=== PATIENT | male | born 1980 ===

== ENCOUNTER 2017-11-16 10:36 | Emergency (ER) | payer OTHER ==
[2017-11-16 10:45] VITALS: O2SAT 98
[2017-11-16] MEDS ORDERED: Sodium Chloride 0.9% 1,000 ML IV STA (11:32)
--- NOTE | 2017-11-16 11:35 | C.PDOC ---
History Of Present Illness Amilcar Majano is a 37 year old male, with no past medical history, who presents to the emergency department complaining of fever and epigastric abdominal pain onset for x3 days. Patient reports on Saturday he went to [facility] for evaluation of fever, he was swabbed for the Flu which came back negative, and was prescribed medication but with no resolution of fever. Patient went to [facility] again today, he had a Fever of 100.5 and had an X-Ray done. Patient states he was told he had some blood in urine and was referred to come to the ER for complete evaluation. Patient also reports some backaches but denies any other medical complaints. PMD: None provided. Time Seen by Provider: 11/16/17 11:08 Chief Complaint (Nursing): Abdominal Pain History Per: Patient History/Exam Limitations: no limitations Onset/Duration Of Symptoms: Days (x3) Current Symptoms Are (Timing): Still Present Location Of Pain/Discomfort: Epigastric Radiation Of Pain To:: None Quality Of Discomfort: "Pain" Associated Symptoms: Fever, Back Pain (back stiffness), Urinary Symptoms (mild blood in urine) Past Medical History Reviewed: Historical Data, Nursing Documentation, Vital Signs Vital Signs: Last Vital Signs Temp 99.3 F 11/16/17 13:46 Pulse 90 11/16/17 13:46 Resp 18 11/16/17 13:46 BP 148/83 11/16/17 13:46 Pulse Ox 98 11/16/17 13:46 - Medical History PMH: No Chronic Diseases Surgical History: Tonsillectomy Family History: States: Unknown Family Hx - Social History Hx Tobacco Use: No Hx Alcohol Use: No Hx Substance Use: No Review Of Systems Except As Marked, All Systems Reviewed And Found Negative. Constitutional: Positive for: Fever Gastrointestinal: Positive for: Abdominal Pain (epigastric) Genitourinary: Positive for: Hematuria (mild) Musculoskeletal: Positive for: Back Pain (back stiffness) Physical Exam - Physical Exam Appears: Well, Non-toxic, No Acute Distress Skin: Normal Color, Warm, Dry Head: Atraumatic, Normacephalic Eye(s): bilateral: Normal Inspection Ear(s): Bilateral: Normal Nose: Normal Throat: No Erythema, No Exudate Neck: Normal ROM, Supple Cardiovascular: Rhythm Regular, No Murmur Respiratory: Normal Breath Sounds (clear b/l), No Wheezing Gastrointestinal/Abdominal: Normal Exam, Soft, No Tenderness Back: Normal Inspection, No CVA Tenderness, No Vertebral Tenderness, No Paraspinal Tenderness Extremity: Normal ROM, No Deformity, No Swelling Neurological/Psych: Oriented x3, Normal Speech, Normal Cognition ED Course And Treatment - Laboratory Results Result Diagrams: 11/16/17 11:34 11/16/17 11:34 O2 Sat by Pulse Oximetry: 98 (RA) Pulse Ox Interpretation: Normal Progress Note: Initial Plan: --CK-MB. --Comp Metabolic Panel. --Creatine Phosphokinase. --Lipase. --Troponin I. --CBC w/ differential. --PTT. --PT. --Chest two views (PA/LAT) [RAD]. --Sodium Chloride 1,000 ml IV 1,000 mls/ hr. --Influenza A B positive. --Urinalysis. Patient feels better, not toxic, no hematuria, abdomen is not tender. No meningeal signs. Positive test for influenza A. However patient is symptomatic for 6 days, Tamiflu is not indicated any longer. Patient was found to be hyperglycemic. Patient sts he doesn't have P{MD and didn't have regular check up for a while. Patient admits having a strong family h/o DM. Metformin was started. Patient was instructed to f.u with PMD [facility] and to return to ED if feel worse. Disposition - Disposition Referrals: Agustin Smith MD [Staff Provider] - Disposition: HOME/ ROUTINE Disposition Time: 13:26 Condition: STABLE Additional Instructions: Follow up with PMD within 1-2 days. Return to ED if feel worse. Prescriptions: Metformin ER [Glucophage XR] 750 mg PO DAILY #30 ter Ibuprofen [Motrin Tab] 600 mg PO Q8 #30 tab Ondansetron ODT [Zofran ODT] 4 mg PO .Q4-6H PRN #20 odt PRN Reason: Nausea/Vomiting Instructions: Metformin (By mouth), Diabetes Mellitus Type 2 in Adults (ED), Influenza (ED) Forms: [employer] (Turkmen) - Clinical Impression Clinical Impression: Influenza A, Diabetes mellitus - Scribe Statement Jimi Christine All medical record entries made by the Scribe were at my direction and personally dictated by me. I have reviewed the chart and agree that the record accurately reflects my personal performance of the history, physical exam, medical decision making, and the department course for this patient. I have also personally directed, reviewed, and agree with the discharge instructions and disposition.
[2017-11-16 11:47] LABS: BASO # 0.1 K/uL (0.0-0.2); BASO % 1.5 % (0.0-2.0); EOS % 0.2 % (0.0-4.0); HEMOGLOBIN 15.8 g/dL (12.0-18.0); LYMPH # 0.7 K/uL (1.0-4.3); LYMPH % 16.6 % (20.0-40.0); MEAN CELL VOLUME 83.5 fL (80.0-94.0); MEAN CORPUSCULAR HEMOGLOBIN 28.7 pg (27.0-31.0); MEAN CORPUSCULAR HGB CONC 34.4 g/dL (33.0-37.0); MEAN PLATELET VOLUME 11.7 fL (7.2-11.7); MONO # 0.4 K/uL (0.0-0.8); MONO % 10.6 % (0.0-10.0); NEUT # 2.9 K/uL (1.8-7.0); NEUT % 71.1 % (50.0-75.0); NRBC % 0.3 % (0.0-2.0); RBC 5.5 Mil/uL (4.40-5.90); RED CELL DISTRIBUTION WIDTH 14.9 % (11.5-14.5); URINE BILIRUBIN NEGATIVE (NEGATIVE); URINE BLOOD NEGATIVE (NEGATIVE); URINE CLARITY Clear (Clear); URINE COLOR Yellow (YELLOW); URINE GLUCOSE (UA) 3+ mg/dL (Normal); URINE LEUKOCYTE ESTERASE NEG Leu/uL (Negative); URINE NITRATE NEGATIVE (NEGATIVE); URINE PROTEIN 1+ mg/dL (NEGATIVE); URINE UROBILINOGEN NORMAL mg/dL (0.2-1.0); WHITE BLOOD COUNT 4.1 K/uL (4.8-10.8)
[2017-11-16 11:55] LABS: INR 1.2; PROTHROMBIN TIME 14.1 SECONDS (9.7-12.2)
[2017-11-16 12:09] LABS: ALBUMIN 4.7 g/dL (3.5-5.0); ALT/SGPT 104 U/L (21-72); AST/SGOT 73 U/L (17-59); BLOOD UREA NITROGEN 8 mg/dL (9-20); CALCIUM 9.3 mg/dl (8.6-10.4); GFR AFRICAN-AMERICAN > 60; GFR NON-AFRICAN AMERICAN > 60; LIPASE 116 U/L (23-300)
[2017-11-16 12:19] LABS: ALB/GLOB RATIO 1.3 (1.0-2.1)
[2017-11-16] MEDS ORDERED: Sodium Chloride 0.9% 1,000 ML ONE (12:23)
[2017-11-16 13:47] VITALS: BP 148/83; PULSE 90; RESP 18; TEMP 99.3
--- NOTE | 2017-11-16 16:08 | RAD ---
HISTORY: fever COMPARISON: No prior. TECHNIQUE: Chest PA and lateral FINDINGS: LUNGS: No active pulmonary disease. PLEURA: No significant pleural effusion identified. No pneumothorax apparent. CARDIOVASCULAR: Normal. OSSEOUS STRUCTURES: No significant abnormalities. VISUALIZED UPPER ABDOMEN: Normal. OTHER FINDINGS: None. IMPRESSION: No active disease.
== END 2017-11-16 13:46 | disposition home or self-care (01) ==
LOC: C.ER 10:36
DX: J11.1 Influenza due to unidentified influenza virus with other respiratory manifestations (principal); E11.9 Type 2 diabetes mellitus without complications
CPT/HCPCS: 71046; 80053; 81001; 82550; 82553; 83690; 84484; 85025; 85610; 85730; 87804; 96360; 99284; J7040